=== PATIENT | male | born 1945 | race Caucasian/White ===

== ENCOUNTER 2025-01-10 14:19 | Outpatient (CLI) | payer MEDICARE | END 2025-01-10 14:20 | disposition home or self-care (01) | LOC: CT 14:19 | PROVIDERS: ATTEND Specialist | DX: R09.81 Nasal congestion (principal); J34.89 Other specified disorders of nose and nasal sinuses ==

== ENCOUNTER 2025-02-16 12:16 | Inpatient (IN) | payer MEDICARE ==
[2025-02-16] MEDS ORDERED: Ondansetron PF 4 MG/2 ML Vial IVP PRN (15:31)
[2025-02-16] MEDS ORDERED: Senokot S 8.6-50 MG TAB PO PRN (15:31)
[2025-02-16 15:45] VITALS: BMI 35.2
[2025-02-16] MEDS ORDERED: hydrALAZINE 20 MG/ML VIAL SLOW IVP PRN (17:18)
[2025-02-16] MEDS: Famotidine 20 MG TAB PO SCH (20:10)
[2025-02-16] MEDS: Amoxicillin/Potassium Clav 875 MG TAB PO SCH (20:11)
[2025-02-16] MEDS: Rosuvastatin 10 MG TAB PO SCH (20:11)
[2025-02-17 04:57] LABS: #Basophils 0.04 10x3/uL (0.0-0.2); #Eosinophils 0.16 10x3/uL (0.0-0.7); #Monocytes 1.32 10x3/uL (0.11-0.59); #Neutrophils 6.56 10x3/uL (1.40-6.50); %Basophils 0.4 % (0.0-1.0); %Eosinophils 1.5 % (0.0-10.0); %Lymphocytes 21.5 % (21.0-51.0); %Monocytes 12.5 % (0.0-10.0); %Neutrophils 62.0 % (42.0-75.0); Hematocrit 45.3 % (42.0-52.0); Hemoglobin 14.5 g/dL (14.0-18.0); Mean Corpuscular Hemoglobin 29.5 pg (27.0-31.0); Mean Corpuscular Volume 92.3 fL (78.0-98.0); Platelet Count 222 10x3/uL (130-400); Red Blood Cell (RBC) Count 4.91 mill/uL (4.70-6.10); White Blood Cell (WBC) Count 10.57 10x3/uL (4.8-10.8)
[2025-02-17 05:21] LABS: Anion Gap 12 mmol/L (10-20); BUN (Urea Nitrogen) 24 mg/dL (8.4-25.7); Calc. Creatinine Clearance 106 mL/min (70-130); Calcium 8.6 mg/dL (7.8-10.44); Carbon Dioxide 23 mmol/L (23-31); Chloride 110 mmol/L (98-107); Glucose 97 mg/dL (83-110); Potassium 4.9 mmol/L (3.5-5.1); Sodium 140 mmol/L (136-145)
[2025-02-17] MEDS: Allopurinol 100 MG TAB PO SCH (09:40)
[2025-02-17] MEDS: Acetaminophen 325 MG TAB PO PRN (14:10)
[2025-02-18] MEDS ORDERED: PROPOFOL 20 ML ONE (11:55)
[2025-02-18] MEDS ORDERED: Lidocaine 1% PF 5 ML VIAL ONE (12:12)
[2025-02-18] MEDS ORDERED: PHENYLEPHRINE-NS 100 MCG/ML 10 ML SYRINGE ONE (12:12)
[2025-02-18 15:59] VITALS: BP 107/62; TEMP 97.7
== END 2025-02-18 17:44 | disposition home or self-care (01) | DRG 315 ==
LOC: INTOOBSV 14:49 → OBS 14:49 → OBSVTOIN 02-17 15:30
PROVIDERS: ADMIT Family Medicine; ATTEND Family Medicine
PROC: 5A2204Z Restoration of Cardiac Rhythm, Single (ICD-10-PCS; principal; 2025-02-18)
DX: I95.9 Hypotension, unspecified (principal); I48.92 Unspecified atrial flutter; I48.0 Paroxysmal atrial fibrillation; E78.5 Hyperlipidemia, unspecified; I50.9 Heart failure, unspecified; J44.9 Chronic obstructive pulmonary disease, unspecified; M10.9 Gout, unspecified; I11.0 Hypertensive heart disease with heart failure; G47.33 Obstructive sleep apnea (adult) (pediatric); Z90.79 Acquired absence of other genital organ(s); Z82.49 Family history of ischemic heart disease and other diseases of the circulatory system; Z87.891 Personal history of nicotine dependence; Z98.890 Other specified postprocedural states; Z79.899 Other long term (current) drug therapy; R79.89 Other specified abnormal findings of blood chemistry; Z85.46 Personal history of malignant neoplasm of prostate; Z88.0 Allergy status to penicillin; Z88.8 Allergy status to other drugs, medicaments and biological substances; Z91.013 Allergy to seafood; Z96.651 Presence of right artificial knee joint
CPT/HCPCS: 36415; 80048; 85025; 92960; 93005; 93010; 93312; G0378; J2704; J7030